=== PATIENT | male | born 1970 | race Two or more races ===

== ENCOUNTER → 2017-02-07 | Outpatient (REF) | payer MEDICAID ==
[~2017-02-07] MED LIST: ATEN50TA2; AVELIDE; PERC5TAB8; PROVENTIL; ROBA750T
[2017-02-07 16:48] LABS: MEAN CORPUSCULAR HEMOGLOBIN 27.9 pg (27.0-33.0); MEAN CORPUSCULAR HGB CONC 32.5 g/dl (32.0-36.5); MEAN CORPUSCULAR VOLUME 85.7 fl (80.0-96.0); PLATELET COUNT, AUTOMATED 225 10^3/uL (150-450); RED CELL DISTRIBUTION WIDTH 12.9 % (11.5-14.5); WHITE BLOOD COUNT 5.7 10^3/uL (4.0-10.0)
[2017-02-07 17:08] LABS: ALBUMIN 3.7 GM/DL (3.2-5.2); ALBUMIN/GLOBULIN RATIO 1.06 (1.00-1.93); ALKALINE PHOSPHATASE 77 U/L (45-117); ALT/SGPT 51 U/L (12-78); ANION GAP 3 MEQ/L (8-16); AST/SGOT 28 U/L (7-37); BILIRUBIN,TOTAL 0.5 MG/DL (0.2-1.0); BLOOD UREA NITROGEN 12 MG/DL (7-18); CALCIUM LEVEL 8.8 MG/DL (8.5-10.1); CARBON DIOXIDE LEVEL 36 MEQ/L (21-32); CHLORIDE LEVEL 102 MEQ/L (98-107); CHOLESTEROL LEVEL 236 MG/DL (<200); CREATININE FOR GFR 0.92 MG/DL (0.70-1.30); GLOMERULAR FILTRATION RATE > 60.0 (>60); GLUCOSE, FASTING 212 MG/DL (70-105); POTASSIUM SERUM 3.7 MEQ/L (3.5-5.1); SODIUM LEVEL 141 MEQ/L (136-145); TOTAL PROTEIN 7.2 GM/DL (6.4-8.2); TRIGLYCERIDES LEVEL 325 MG/DL (<150)
== END ==
LOC: M SFHCLERA 11:06
PROVIDERS: ATTEND Family Medicine
DX: I50.9 Heart failure, unspecified (principal); I11.0 Hypertensive heart disease with heart failure

== ENCOUNTER → 2021-04-25 | Outpatient (REF) | payer MEDICAID, OTHER | LOC: M SFHCPLAZ 12:37 | PROVIDERS: ATTEND Physician Assistant | DX: R05.9 Cough, unspecified (principal) ==

== ENCOUNTER → 2023-09-21 | Outpatient (CLI) | payer OTHER, MEDICAID | LOC: M SOG 09:07 | PROVIDERS: ATTEND Physician Assistant | DX: M79.645 Pain in left finger(s) (principal) ==

== ENCOUNTER 2023-09-30 17:20 | Inpatient (IN) | payer OTHER ==
[~2023-09-30] VITALS: Ht 180.3 cm; Wt 132.8 kg
[2023-09-30 17:30] VITALS: BP 156/86; TEMP 97; O2SAT 96
[2023-09-30] MEDS ORDERED: MAALOX 30 ML SUSP *UDC PO PRN (18:05)
[2023-09-30] MEDS ORDERED: ACETAMINOPHEN TAB 650MG DOSE (2X325MG) PO PRN (18:05)
[2023-09-30] MEDS ORDERED: MOM 30ML SUSPENSION UDC PO PRN (18:05)
[2023-09-30] MEDS ORDERED: GLUCOSE 4 GM CHEW PO PRN (18:10)
[2023-09-30] MEDS ORDERED: ALBUTEROL 90 MCG/ACT 8GM HFA INHALER INH PRN (18:10)
[2023-09-30] MEDS ORDERED: GLUCAGON INJ 1MG VIAL SC PRN (18:10)
[2023-09-30] MEDS ORDERED: DEXTROSE 50% 50ML SYRINGE IV PRN (18:10)
[2023-09-30] MEDS ORDERED: METO1TAB33 PO (18:38)
[2023-09-30] MEDS ORDERED: LISI10TA22 PO (18:38)
[2023-09-30] MEDS ORDERED: ZOLO100T PO (18:38)
[2023-09-30] MEDS ORDERED: AMLO1TAB24 PO (18:38)
[2023-09-30] MEDS ORDERED: FURO40TA2 PO (18:38)
[2023-09-30] MEDS ORDERED: VENTAER INH (18:38)
[2023-09-30] MEDS ORDERED: HYDR-3713 PO (18:38)
[2023-09-30] MEDS ORDERED: METF-877 PO (18:38)
[2023-09-30] MEDS ORDERED: CETI-24 PO (18:38)
[2023-09-30] MEDS ORDERED: POTA-151 PO (18:38)
[2023-09-30] MEDS ORDERED: HYDR50TA46 PO (18:38)
[2023-09-30] MEDS ORDERED: ASPI81TA26 PO (18:38)
[2023-09-30] MEDS ORDERED: ATOR40TA75 PO (18:38)
[2023-09-30] MEDS ORDERED: HOME MED LIST COMPLETE! XX SCH (18:40)
[2023-09-30 18:53] LABS: BASO % 0.6 % (0.0-1.0); EOS # 0.2 10^3/uL (0.0-0.5); EOS % 2.4 % (0.0-3.0); HEMATOCRIT 37.7 % (42.0-52.0); HEMOGLOBIN 12.9 g/dl (13.5-17.5); LYMPH # 1.8 10^3/uL (1.5-5.0); LYMPH % 27.2 % (24.0-44.0); MEAN CORPUSCULAR HEMOGLOBIN 29.7 pg (27.0-33.0); MEAN CORPUSCULAR HGB CONC 34.2 g/dl (32.0-36.5); MEAN CORPUSCULAR VOLUME 86.7 fl (80.0-96.0); MONO # 0.6 10^3/uL (0.0-0.8); MONO % 8.9 % (2.0-8.0); NEUTROPHILS # 4.1 10^3/uL (1.5-8.5); NEUTROPHILS % 60.6 % (36.0-66.0); PLATELET COUNT, AUTOMATED 205 10^3/uL (150-450); RED BLOOD COUNT 4.35 10^6/uL (4.30-6.10); WHITE BLOOD COUNT 6.7 10^3/uL (4.0-10.0)
[2023-09-30 19:05] LABS: ERYTHROCYTE SEDIMENTATION RATE 20 mm/hr (0-20)
[2023-09-30 19:14] LABS: C REACTIVE PROTEIN QUANTITATIV < 0.40 MG/DL (<1.0)
[2023-09-30 19:15] LABS: BLOOD UREA NITROGEN 12 MG/DL (9-23); CARBON DIOXIDE LEVEL 29 MMOL/L (20-31); CHLORIDE LEVEL 103 MMOL/L (98-107); CREATININE FOR GFR 0.76 MG/DL (0.70-1.30); GLOMERULAR FILTRATION RATE > 60.0 (>56); GLUCOSE, FASTING 166 MG/DL (60-100); MAGNESIUM LEVEL 1.4 MG/DL (1.8-2.4); POTASSIUM SERUM 3.4 MMOL/L (3.5-5.1); SODIUM LEVEL 140 MMOL/L (136-145)
[2023-09-30] MEDS: INSULIN LISPRO (NovoLOG) PER UNIT SC SCH (20:35)
[2023-09-30] MEDS: MORPHINE 2 MG/ML 1ML VIAL IV PRN (20:58)
[2023-09-30 21:10] VITALS: BP 156/74; TEMP 97; O2SAT 96
[2023-09-30] MEDS: METOPROLOL SUCC (TopROL XL) 100MG *XL* TAB PO SCH (22:53)
[2023-09-30] MEDS: **hydrALAZINE** 50 MG TAB PO SCH (22:54)
[2023-09-30] MEDS: MAGNESIUM OXIDE 400MG TAB (MAG-OX) PO ONE (22:54)
[2023-09-30] MEDS: POTASSIUM CHLORIDE 10MEQ SR TABLET PO ONE (22:55)
[2023-10-01] VITALS (8 sets, daily range): BP systolic 123–153; BP diastolic 68–92; TEMP 97–98.1; O2SAT 92–98
[2023-10-01 06:18] LABS: HEMOGLOBIN A1c 7.8 % (4.0-6.0)
[2023-10-01 06:32] LABS: ALBUMIN 3.7 G/DL (3.2-5.2); ALKALINE PHOSPHATASE 60 U/L (46-116); ALT/SGPT 29 U/L (7.0-40); AST/SGOT 13 U/L (<34); BILIRUBIN,DIRECT 0.2 MG/DL (<0.4); BILIRUBIN,TOTAL 0.6 MG/DL (0.3-1.2); BLOOD UREA NITROGEN 10 MG/DL (9-23); CALCIUM LEVEL 8.6 MG/DL (8.5-10.1); CARBON DIOXIDE LEVEL 31 MMOL/L (20-31); CHLORIDE LEVEL 105 MMOL/L (98-107); CHOLESTEROL LEVEL 132 MG/DL (<200); CHOLESTEROL RISK RATIO 4.17 (<5); CREATININE FOR GFR 0.74 MG/DL (0.70-1.30); GLOMERULAR FILTRATION RATE > 60.0 (>56); GLUCOSE, FASTING 142 MG/DL (60-100); HDL CHOLESTEROL 31.6 MG/DL (>40); LDL CHOLESTEROL 52.6 MG/DL (<100); MAGNESIUM LEVEL 1.6 MG/DL (1.8-2.4); NON-HDL-C 100.4 MG/DL; POTASSIUM SERUM 3.4 MMOL/L (3.5-5.1); SODIUM LEVEL 142 MMOL/L (136-145); TOTAL PROTEIN 6.6 G/DL (5.7-8.2); TRIGLYCERIDES LEVEL 239 MG/DL (<150)
[2023-10-01] MEDS: INSULIN LISPRO (NovoLOG) PER UNIT SC SCH (07:30)
[2023-10-01] MEDS: POTASSIUM CHLORIDE 10MEQ SR TABLET PO SCH ×2 (07:37→20:14)
[2023-10-01] MEDS: PERCOCET 5MG/325MG TAB PO PRN ×2 (07:38→22:52)
[2023-10-01] MEDS: amLODIPine 5 MG TAB PO SCH (07:38)
[2023-10-01] MEDS ORDERED: POTASSIUM CHLORIDE 10MEQ SR TABLET PO ONE (11:25)
[2023-10-01] MEDS: MAG SULF 1GM/100ML (MAG RUN) 1 GM in IV 1 EA IV SCH (12:05)
[2023-10-01] MEDS: ceFAZolin 1GM VIAL As Ordered ONE (17:18)
[2023-10-01] MEDS: ceFAZolin 2 GM/D5W 50 ML IV BAG As Ordered ONE (17:18)
[2023-10-01] MEDS ORDERED: ONDANSETRON 4MG 2ML VIAL As Ordered ONE (17:25)
[2023-10-01] MEDS ORDERED: LIDOCAINE 2% 100MG/5ML SDV (FOR ANES.) As Ordered ONE (17:25)
[2023-10-01] MEDS ORDERED: ACETAMINOPHEN 1000MG 100ML IV BAG As Ordered ONE (17:25)
[2023-10-01] MEDS ORDERED: fentaNYL 100 MCG/2 ML INJECTION As Ordered ONE (17:25)
[2023-10-01] MEDS ORDERED: METOCLOPRAMIDE INJ 10MG/2ML VIAL As Ordered ONE (17:25)
[2023-10-01] MEDS ORDERED: MIDAZOLAM INJ 2MG/2ML VIAL As Ordered ONE (17:25)
[2023-10-01] MEDS ORDERED: propofoL 200 MG/20 ML VIAL As Ordered ONE (17:25)
[2023-10-01] MEDS ORDERED: ePHEDrine SULFATE 25 MG/5 ML(5MG/ML) SYRINGE As Ordered ONE (17:34)
[2023-10-01] MEDS ORDERED: KETOROLAC 60MG 2ML VIAL As Ordered ONE (17:39)
[2023-10-01] MEDS ORDERED: LR 1,000 ML IV SCH (17:55)
[2023-10-01] MEDS ORDERED: diphenhydrAMINE 50MG/ML VIAL IV PRN (17:55)
[2023-10-01] MEDS ORDERED: MEPERIDINE 25 MG/ML 1ML VIAL IV PRN (17:55)
[2023-10-01] MEDS ORDERED: oxyCODONE 5MG TAB PO PRN (17:55)
[2023-10-01] MEDS ORDERED: METOCLOPRAMIDE INJ 10MG/2ML VIAL IV PRN (17:55)
[2023-10-01] MEDS ORDERED: fentaNYL 100 MCG/2 ML INJECTION IV PRN (17:55)
[2023-10-01] MEDS ORDERED: ONDANSETRON 4MG 2ML VIAL IV PRN (17:55)
[2023-10-02] MEDS: ceFAZolin SOD 1 GM in D5W MINI-BAG PLUS 50 ML IV SCH (00:40)
[2023-10-02] MEDS: MORPHINE 4 MG/ML 1ML VIAL IV PRN (00:41)
[2023-10-02 02:07] VITALS: BP 158/93; TEMP 97.9; O2SAT 94
[2023-10-02 06:09] VITALS: BP 156/91; TEMP 97.5; O2SAT 93
[2023-10-02 07:23] LABS: BLOOD UREA NITROGEN 11 MG/DL (9-23); CALCIUM LEVEL 8.2 MG/DL (8.5-10.1); CARBON DIOXIDE LEVEL 31 MMOL/L (20-31); CHLORIDE LEVEL 103 MMOL/L (98-107); CREATININE FOR GFR 0.74 MG/DL (0.70-1.30); GLOMERULAR FILTRATION RATE > 60.0 (>56); GLUCOSE, FASTING 184 MG/DL (60-100); MAGNESIUM LEVEL 1.9 MG/DL (1.8-2.4); POTASSIUM SERUM 3.8 MMOL/L (3.5-5.1); SODIUM LEVEL 140 MMOL/L (136-145)
[2023-10-02 08:17] VITALS: BP 150/87
[2023-10-02 10:10] VITALS: BP 151/91; TEMP 98.1; O2SAT 95
[2023-10-02 11:40] VITALS: BP 152/92; TEMP 97.2; O2SAT 94
[2023-10-02] MEDS ORDERED: BOOSTRIX VACCINE (TETANUS/DIPHTH/ACEL. PERTUSSIS) 0.5ML SYR IM ONE (14:00)
== END 2023-10-02 13:15 | disposition home or self-care (01) | DRG 316 ==
LOC: M MS5PR 17:20 → EDSTATUS 10-01 13:15
PROVIDERS: ADMIT Internal Medicine; ATTEND Student in an Organized Health Care Education/Training Program
PROC: 0LB80ZZ Excision of Left Hand Tendon, Open Approach (ICD-10-PCS; 2023-10-01)
PROC: 0LQ80ZZ Repair Left Hand Tendon, Open Approach (ICD-10-PCS; principal; 2023-10-01 13:15)
DX: S66.222A Laceration of extensor muscle, fascia and tendon of left thumb at wrist and hand level, initial encounter (principal); E83.42 Hypomagnesemia; I10 Essential (primary) hypertension; E78.5 Hyperlipidemia, unspecified; E11.9 Type 2 diabetes mellitus without complications; E87.6 Hypokalemia; J45.909 Unspecified asthma, uncomplicated; F17.220 Nicotine dependence, chewing tobacco, uncomplicated; W26.8XXA Contact with other sharp object(s), not elsewhere classified, initial encounter; Y92.69 Other specified industrial and construction area as the place of occurrence of the external cause; Y93.9 Activity, unspecified; Z79.82 Long term (current) use of aspirin; Z79.84 Long term (current) use of oral hypoglycemic drugs; Z79.899 Other long term (current) drug therapy; Z91.013 Allergy to seafood

== ENCOUNTER → 2024-01-17 | Outpatient (CLI) | payer OTHER ==
[~2024-01-17] MED LIST changes: +AMLO1TAB24 PO; +ASPI81TA26 PO; +ATOR40TA75 PO; +CETI-24 PO; +FURO40TA2 PO; +HYDR-3713 PO; +HYDR50TA46 PO; +LISI10TA22 PO; +METF-877 PO; +METO1TAB33 PO; +POTA-151 PO; +VENTAER INH; +ZOLO100T PO
[2024-01-17 13:32] LABS: BASO % 0.4 % (0.0-1.0); EOS # 0.1 10^3/uL (0.0-0.5); EOS % 1.9 % (0.0-3.0); HEMATOCRIT 38.3 % (42.0-52.0); HEMOGLOBIN 13.1 g/dl (13.5-17.5); LYMPH # 1.4 10^3/uL (1.5-5.0); LYMPH % 19.3 % (24.0-44.0); MEAN CORPUSCULAR HEMOGLOBIN 28.8 pg (27.0-33.0); MEAN CORPUSCULAR HGB CONC 34.2 g/dl (32.0-36.5); MEAN CORPUSCULAR VOLUME 84.2 fl (80.0-96.0); MONO # 0.8 10^3/uL (0.0-0.8); MONO % 10.3 % (2.0-8.0); NEUTROPHILS % 67.8 % (36.0-66.0); PLATELET COUNT, AUTOMATED 236 10^3/uL (150-450); RED BLOOD COUNT 4.55 10^6/uL (4.30-6.10); WHITE BLOOD COUNT 7.3 10^3/uL (4.0-10.0)
[2024-01-17 13:40] LABS: ERYTHROCYTE SEDIMENTATION RATE 31 mm/hr (0-20)
== END ==
LOC: M PLALAB 09:36
PROVIDERS: ATTEND Orthopaedic Surgery Hand Surgery
DX: Z47.89 Encounter for other orthopedic aftercare (principal)

== ENCOUNTER → 2024-08-11 | Outpatient (REF) | LOC: M LAB 13:30 | PROVIDERS: ATTEND Pathology Forensic Pathology | DX: Z02.89 Encounter for other administrative examinations ==